=== PATIENT | female | born 1985 | race Caucasian/White ===

== ENCOUNTER 2021-01-06 22:05 | Emergency (ER) | payer OTHER ==
[2021-01-06 22:37] LABS: BASOPHIL 0.5 % (0-2); EOSINOPHIL 3.5 % (0-5); HCT 40.5 % (37.0-47.0); HGB 13.7 g/dl (12.5-16.0); LYMPHOCYTE 30.1 % (15-48); MCH 29.8 pg (25.0-31.0); MCHC 33.8 g/dL (32.0-36.0); MONOCYTE 7.4 % (0-12); MPV 10.4 fL (6.0-9.5); NEUTROPHIL 58.3 % (41-80); NRBC 0; PLT 180 K/uL (150-400); RDW 12.8 % (11.5-14.0); WBC 8.4 K/uL (4.0-10.5)
[2021-01-06 22:52] LABS: ALBUMIN 4.1 g/dL (3.4-5.0); BILIRUBIN - DIRECT 0.2 mg/dL (0.00-0.20); BILIRUBIN - TOTAL 1.1 mg/dL (0.2-1.0); BUN/CREAT RATIO (CALC) 15.4 RATIO; CREATININE 0.91 mg/dL (0.51-0.95); GLOBULIN (CALCULATION) 3.1 g/dL; POTASSIUM 3.7 mmol/L (3.5-5.1); TOTAL PROTEIN 7.2 g/dL (6.4-8.2)
[2021-02-26] MEDS ORDERED: PERCOCET 5-3251 EACH PO (09:47)
== END 2021-01-07 01:13 | disposition home or self-care (01) ==
LOC: FER 22:05
PROVIDERS: Student in an Organized Health Care Education/Training Program
DX: R07.9 Chest pain, unspecified (principal); R74.8 Abnormal levels of other serum enzymes
CPT/HCPCS: 36415; 71045; 80048; 80076; 83690; 84484; 85025; 93005

== ENCOUNTER → 2021-02-26 | Day surgery (SDC) | payer OTHER ==
[~2021-02-26] VITALS: Ht 172.7 cm; Wt 88.5 kg
[~2021-02-26] MED LIST: PERCOCET 5-3251 EACH PO
[2021-02-26 08:59] LABS: HCG (URINE) SCREEN NEGATIVE (NEGATIVE)
[2021-02-26 09:08] LABS: BASOPHIL 0.7 % (0-2); EOSINOPHIL 4.4 % (0-5); HCT 41.3 % (37.0-47.0); HGB 13.5 g/dl (12.5-16.0); LYMPHOCYTE 28.3 % (15-48); MCH 29.2 pg (25.0-31.0); MCHC 32.7 g/dL (32.0-36.0); MCV 89.2 fL (78.0-100.0); MPV 10.6 fL (6.0-9.5); NEUTROPHIL 57.4 % (41-80); NRBC 0; PLT 202 K/uL (150-400); RBC 4.63 M/uL (4.20-5.40); RDW 12.7 % (11.5-14.0); WBC 5.9 K/uL (4.0-10.5)
== END | disposition home or self-care (01) ==
LOC: FAS 08:05
PROVIDERS: Obstetrics & Gynecology
DX: N92.0 Excessive and frequent menstruation with regular cycle (principal); Z87.891 Personal history of nicotine dependence
CPT/HCPCS: 36415; 84703; 85025; 86850; 86900; 86901; J1100; J1885; J2250; J2405; J2704; J3010; J7120